=== PATIENT | female | born 1965 | race Caucasian/White ===

== ENCOUNTER 2018-07-13 20:20 | Emergency (ER) | payer OTHER ==
[2018-07-13 21:42] LABS: ADD MAN DIFF? NO
[2018-07-13 21:51] LABS: BASOPHILS % 0.4 % (0.0-2.0); EOSINOPHILS # 0.1 10^3/ul (0.0-0.5); EOSINOPHILS % 1.3 % (0.0-7.0); HEMOGLOBIN 11.8 g/dl (12.0-16.0); LYMPHOCYTES # 3.1 10^3/ul (0.8-2.9); LYMPHOCYTES % 39.4 % (15.0-51.0); MEAN CORPUSCULAR HEMOGLOBIN 28.5 pg (29.0-33.0); MEAN CORPUSCULAR HGB CONC 31.9 g/dl (32.0-37.0); MEAN CORPUSCULAR VOLUME 89.4 fl (82.0-101.0); MEAN PLATELET VOLUME 9.5 fl (7.4-10.4); MONOCYTE # 0.6 10^3/ul (0.3-0.9); NEUTROPHIL # 3.9 10^3/ul (1.6-7.5); NEUTROPHILS % 50.8 % (39.0-77.0); PLATELET COUNT 307 10^3/UL (140-415); RED BLOOD COUNT 4.14 10^6/ul (4.20-5.40); RED CELL DISTRIBUTION WIDTH 13.7 % (11.5-14.5)
[2018-07-13 21:51] LABS: WHITE BLOOD COUNT 7.7 10^3/ul (4.8-10.8)
[2018-07-13 22:09] LABS: ANION GAP 6 (5-13); BLOOD UREA NITROGEN 20 mg/dl (7-20); CALCIUM 9.2 mg/dl (8.4-10.2); CARBON DIOXIDE 27 mmol/L (21-31); CHLORIDE 105 mmol/L (97-110); CREATININE 0.56 mg/dl (0.44-1.00); Estimated GFR > 60 mL/min (>60); GLUCOSE 91 mg/dl (70-220); POTASSIUM 3.5 mmol/L (3.5-5.1); SODIUM 138 mmol/L (135-144)
[2018-07-13 22:10] LABS: INR 0.93; PROTIME 12.5 Sec (11.9-14.9)
[2018-07-13 22:11] LABS: PARTIAL THROMBOPLASTIN TIME 30.5 Sec (23.0-35.0)
[2018-07-13 22:21] LABS: TROPONIN-I < 0.012 ng/ml (0.000-0.120)
== END 2018-07-13 23:08 | disposition home or self-care (01) ==
LOC: FTE 20:20
DX: R05 Cough (principal); R07.89 Other chest pain; E03.9 Hypothyroidism, unspecified; Z79.82 Long term (current) use of aspirin
CPT/HCPCS: 71045; 80048; 84484; 85025; 85610; 85730; 93005; 99285-25

== ENCOUNTER 2018-09-22 10:35 | Emergency (ER) | payer OTHER ==
[2018-09-22] MEDS: IBUPROFEN 600 MG TAB PO (11:31)
[2018-09-22 11:48] LABS: ADD MAN DIFF? NO
[2018-09-22 11:50] LABS: BASOPHILS % 0.1 % (0.0-2.0); EOSINOPHILS % 0.5 % (0.0-7.0); HEMOGLOBIN 12.8 g/dl (12.0-16.0); LYMPHOCYTES # 1.6 10^3/ul (0.8-2.9); LYMPHOCYTES % 19.3 % (15.0-51.0); MEAN CORPUSCULAR HEMOGLOBIN 28.6 pg (29.0-33.0); MEAN CORPUSCULAR VOLUME 89.5 fl (82.0-101.0); MEAN PLATELET VOLUME 9.1 fl (7.4-10.4); MONOCYTE # 0.7 10^3/ul (0.3-0.9); MONOCYTES % 8.4 % (0.0-11.0); NEUTROPHIL # 5.9 10^3/ul (1.6-7.5); NEUTROPHILS % 71.6 % (39.0-77.0); PLATELET COUNT 333 10^3/UL (140-415); RED BLOOD COUNT 4.47 10^6/ul (4.20-5.40); RED CELL DISTRIBUTION WIDTH 13.9 % (11.5-14.5)
[2018-09-22 11:50] LABS: WHITE BLOOD COUNT 8.3 10^3/ul (4.8-10.8)
[2018-09-22 12:11] LABS: ANION GAP 8 (5-13); BLOOD UREA NITROGEN 16 mg/dl (7-20); CARBON DIOXIDE 30 mmol/L (21-31); CHLORIDE 102 mmol/L (97-110); CREATININE 0.67 mg/dl (0.44-1.00); Estimated GFR > 60 mL/min (>60); GLUCOSE 100 mg/dl (70-220); POTASSIUM 3.7 mmol/L (3.5-5.1); SODIUM 140 mmol/L (135-144)
[2018-09-22 12:23] LABS: TROPONIN-I < 0.012 ng/ml (0.000-0.120)
== END 2018-09-22 13:38 | disposition home or self-care (01) ==
LOC: FTE 10:35
DX: B34.9 Viral infection, unspecified (principal); E03.9 Hypothyroidism, unspecified; R40.2412 Glasgow coma scale score 13-15, at arrival to emergency department; R07.9 Chest pain, unspecified; Z79.82 Long term (current) use of aspirin
CPT/HCPCS: 36415; 71045; 80048; 84484; 85025; 93005; 99285-25

== ENCOUNTER 2018-10-23 06:24 | Day surgery (SDC) | payer OTHER ==
[2018-10-23] MEDS ORDERED: FENTAnyl 50 MCG/ML VIAL (10:28)
[2018-10-23] MEDS ORDERED: MIDAZOLAM 1 MG/ML 2 ML INJ (10:28)
[2018-10-23] MEDS: OXYMETAZOLINE 0.05% 15 ML NAS SPRAY NASAL (10:38)
[2018-10-23] MEDS: LIDOCAINE 1%/EPI (1:100,000) (MDV) 20 ML (10:38)
[2018-10-23] MEDS: NEOMYC/POLYMYX/BACIT 30 GM OINT (10:42)
[2018-10-23] MEDS ORDERED: PROPOFOL 20 ML (10:57)
[2018-10-23] MEDS ORDERED: CEFAZOLIN 1 GM INJ (10:57)
[2018-10-23] MEDS ORDERED: ROCURONIUM 50 MG INJ (10:57)
[2018-10-23] MEDS ORDERED: NEOSTIGMINE 10 MG INJ (10:57)
[2018-10-23] MEDS ORDERED: GLYCOPYRROLATE 0.4 MG INJ (10:57)
[2018-10-23] MEDS ORDERED: LIDOCAINE 2% (SDV) 5 ML INJ (10:57)
[2018-10-23] MEDS ORDERED: ONDANSETRON 4 MG INJ (10:58)
[2018-10-23] MEDS: ONDANSETRON 4 MG INJ IV (11:28)
[2018-10-23] MEDS: MEPERIDINE 25 MG INJ IV (11:28)
[2018-10-23] MEDS ORDERED: DIPHENHYDRAMINE 50 MG INJ IV (11:30)
[2018-10-23] MEDS ORDERED: FENTAnyl 50 MCG/ML VIAL IV (11:30)
[2018-10-23] MEDS ORDERED: METOCLOPRAMIDE 10 MG INJ IV (11:30)
[2018-10-23] MEDS: OXYCODONE/ACETAMINOPHEN (5/325) TAB PO (12:39)
== END 2018-10-23 14:48 | disposition home or self-care (01) ==
LOC: SDS 06:24
DX: J34.2 Deviated nasal septum (principal); J34.3 Hypertrophy of nasal turbinates; I10 Essential (primary) hypertension; E78.5 Hyperlipidemia, unspecified; E03.9 Hypothyroidism, unspecified
CPT/HCPCS: 30140; 88300